=== PATIENT | female | born 1970 | race Caucasian/White ===

== ENCOUNTER 2023-04-10 11:59 | Emergency (ER) | payer OTHER, SELFPAY ==
[2023-04-10 11:59] VITALS: BP 174/99; PULSE 75; RESP 16; TEMP 36.6; O2SAT 99; BMI 36.0
--- NOTE | 2023-04-10 12:15 | EXP.UTC ---
Discharge Plan Disposition Patient Disposition: Home, Self-Care Condition: Good Prescriptions Prescriptions: New amoxicillin [amoxicillin] 875 mg tablet 875 mg PO Q12H Qty: 20 0RF methylprednisolone 4 mg Tablets,Dose Pack 4 mg PO DIRECTED Qty: 21 0RF No Action fluconazole 100 mg tablet PO 8 Days Qty: 10 carvedilol phosphate [Coreg CR] 20 mg capsule, ER multiphase 24 hr 20 mg PO QAM hydrochlorothiazide 12.5 mg tablet 12.5 mg PO QAM spironolactone [Aldactone] 25 mg tablet 12.5 mg PO BID meloxicam [Mobic] 15 mg tablet 15 mg PO ONCE Referrals Follow up/Referrals: Nina Lopez [Primary Care Provider] - See instructions Activity Restrictions/Add. Instructions Additional Instructions/Restrictions: Drink plenty of fluids. Take tylenol or ibuprofen for pain or fever. Take the medications as directed. Follow up with your regular doctor. GO TO THE ER FOR ANY WORSENING SYMPTOMS Clinical Impressions Clinical Impression: Otitis media Instructions Patient Instructions: Middle Ear Infection Discharge ED Provider: Curtis Zuniga [facility] General Stated complaint: right ear pain Mode of Arrival: Ambulatory Source of Information: Patient Limitations: No Limitations Time Seen by Provider: 04/10/23 12:15 Description of Symptoms (Recalled from Triage Doc. by RN): Complaint of right ear pain for 2 days. HEENT Symptoms (Recalled from RN notes): Yes Resp Symptoms (Recalled from RN notes): No Skin Symptoms (Recalled from RN notes): No MS Symptoms (Recalled from RN notes): No Functional Status (Recalled from RN notes): wnl History of Present Illness Provider Complaint: She states that she has had right ear pain and pressure for the past 2 days. Related Data Home Medications Medication Instructions Recorded Confirmed carvedilol phosphate 20 mg 20 mg PO QAM 01/22/18 capsule,[id number] multiphase (Coreg CR) fluconazole 100 mg tablet PO 8 days ##10 01/22/18 hydrochlorothiazide 12.5 mg tablet 12.5 mg PO QAM 01/22/18 meloxicam 15 mg tablet (Mobic) 15 mg PO ONCE 01/22/18 spironolactone 25 mg tablet 12.5 mg PO BID 01/22/18 (Aldactone) Previous Rx's Medication Instructions Recorded amoxicillin 875 mg tablet 875 mg PO Q12H #20 tabs 04/10/23 methylprednisolone 4 mg tablets in 4 mg PO DIRECTED #21 tabs 04/10/23 a dose pack Allergies Allergy/AdvReac Type Severity Reaction Status Date / Time No Known Allergies Allergy Verified 01/22/18 16:17 Worker's Comp Is this a Worker's Comp case?: No PFSH PFS Disclaimer: The information contained in this section may have been updated after the patient was seen, as this information can be updated by other users. Social History Smoking Status: Current every day smoker tobacco type: cigarettes packs per day: 2 alcohol intake: never substance use type: denies use current occupational status: employed Travel in the last 8 weeks: None ROS Obtained: Yes All systems reviewed & no additional complaints except as documented Constitutional Constitutional: Denies chills, Reports fever(s) and Reports poor appetite Eyes Eyes: Denies eye discharge ENT Ears, Nose, Mouth, and Throat: Denies ear discharge, Reports otalgia, Denies hearing loss, Denies sinus pain and Reports sore throat Cardiovascular Cardiovascular: Denies chest pain and Denies dyspnea Respiratory Respiratory: Denies chest congestion, Reports cough and Denies dyspnea Gastrointestinal Gastrointestingal: Denies abdominal pain, diarrhea, nausea or vomiting Musculoskeletal Musculoskeletal: Denies arthralgias Integumentary/Breasts Skin/Breast: Denies rash Physical Exam General General appearance: alert and in no apparent distress Head Head exam: atraumatic, normocephalic and normal inspection Eye Eye exam: Present normal appearance; Absent PERRL or EOMI ENT ENT exam: Present mucous membranes moist and normal external
[2023-04-10 12:23] VITALS: BP 174/99; PULSE 75; RESP 16; TEMP 36.6; O2SAT 99
== END 2023-04-10 12:24 | disposition home or self-care (01) ==
PROVIDERS: Emergency Provider Nurse Practitioner Family; PCP Nurse Practitioner Family
DX: H66.93 Otitis media, unspecified, bilateral (principal); F17.210 Nicotine dependence, cigarettes, uncomplicated
CPT/HCPCS: 99204; 99212; G0463

== ENCOUNTER 2023-05-10 17:58 | Emergency (ER) | payer OTHER, SELFPAY ==
[2023-05-10 17:59] VITALS: BP 151/83; PULSE 79; RESP 15; TEMP 36.8; O2SAT 100; BMI 34.5
--- NOTE | 2023-05-10 18:30 | EXP.UTC ---
Discharge Plan Disposition Patient Disposition: Home, Self-Care Condition: Good Prescriptions Prescriptions: New ibuprofen [IBU] 800 mg tablet 800 mg PO Q8HP PRN (Reason: Moderate Pain) Qty: 30 0RF amoxicillin [amoxicillin] 875 mg tablet 875 mg PO Q12H Qty: 20 0RF No Action fluconazole 100 mg tablet PO 8 Days Qty: 10 carvedilol phosphate [Coreg CR] 20 mg capsule, ER multiphase 24 hr 20 mg PO QAM hydrochlorothiazide 12.5 mg tablet 12.5 mg PO QAM spironolactone [Aldactone] 25 mg tablet 12.5 mg PO BID meloxicam [Mobic] 15 mg tablet 15 mg PO ONCE amoxicillin [amoxicillin] 875 mg tablet 875 mg PO Q12H Qty: 20 0RF methylprednisolone 4 mg Tablets,Dose Pack 4 mg PO DIRECTED Qty: 21 0RF Referrals Follow up/Referrals: Nina Lopez [Primary Care Provider] - See instructions Activity Restrictions/Add. Instructions Additional Instructions/Restrictions: Take the medications as directed. Follow up with your regular doctor. Follow up with your dentist. GO TO THE ER FOR ANY WORSENING SYMPTOMS Clinical Impressions Clinical Impression: Pain, dental Instructions Patient Instructions: DI for Dental Pain Discharge ED Provider: Curtis Zuniga [facility] General Stated complaint: RT ear pain Mode of Arrival: Ambulatory Source of Information: Patient Limitations: No Limitations Time Seen by Provider: 05/10/23 18:30 Description of Symptoms (Recalled from Triage Doc. by RN): Patient reports right ear pain for 2 days. States she isn't sure if it is her ear or a tooth. HEENT Symptoms (Recalled from RN notes): Yes Resp Symptoms (Recalled from RN notes): No Skin Symptoms (Recalled from RN notes): No MS Symptoms (Recalled from RN notes): No Functional Status (Recalled from RN notes): wnl History of Present Illness Provider Complaint: She states that for the past 3 days she has had worsening right upper jaw dental pain. Related Data Home Medications Medication Instructions Recorded Confirmed carvedilol phosphate 20 mg 20 mg PO QAM 01/22/18 capsule,[id number] multiphase (Coreg CR) fluconazole 100 mg tablet PO 8 days ##10 01/22/18 hydrochlorothiazide 12.5 mg tablet 12.5 mg PO QAM 01/22/18 meloxicam 15 mg tablet (Mobic) 15 mg PO ONCE 01/22/18 spironolactone 25 mg tablet 12.5 mg PO BID 01/22/18 (Aldactone) Previous Rx's Medication Instructions Recorded amoxicillin 875 mg tablet 875 mg PO Q12H #20 tabs 04/10/23 methylprednisolone 4 mg tablets in 4 mg PO DIRECTED #21 tabs 04/10/23 a dose pack amoxicillin 875 mg tablet 875 mg PO Q12H #20 tabs 05/10/23 ibuprofen 800 mg tablet (IBU) 800 mg PO Q8HP PRN Moderate Pain 05/10/23 #30 tabs Allergies Allergy/AdvReac Type Severity Reaction Status Date / Time No Known Allergies Allergy Verified 01/22/18 16:17 Worker's Comp Is this a Worker's Comp case?: No [facility] Disclaimer: The information contained in this section may have been updated after the patient was seen, as this information can be updated by other users. Social History (Updated 04/11/23 @ 11:10 by Curtis Zuniga APRN) Smoking Status: Current every day smoker tobacco type: cigarettes packs per day: 2 alcohol intake: never substance use type: denies use current occupational status: employed Travel in the last 8 weeks: None ROS Obtained: Yes All systems reviewed & no additional complaints except as documented Constitutional Constitutional: Denies chills and Denies fever(s) Eyes Eyes: Denies eye discharge ENT Ears, Nose, Mouth, and Throat: Reports as per HPI, Denies dizziness, Denies otalgia and Denies sore throat Cardiovascular Cardiovascular: Denies chest pain Respiratory Respiratory: Denies shortness of breath, Denies chest congestion, Denies cough, Denies stridor and Denies wheezing Gastrointestinal Gastrointestingal: Denies nausea or vomiting Musculoskeletal Musculoskeletal: Reports system re
[2023-05-10 18:38] VITALS: BP 151/83; PULSE 79; RESP 15; TEMP 36.8; O2SAT 100
== END 2023-05-10 18:40 | disposition home or self-care (01) ==
PROVIDERS: Emergency Provider Nurse Practitioner Family; PCP Nurse Practitioner Family
DX: R68.84 Jaw pain (principal); K08.89 Other specified disorders of teeth and supporting structures; F17.210 Nicotine dependence, cigarettes, uncomplicated
CPT/HCPCS: 99212; 99214; G0463

== ENCOUNTER 2025-02-19 18:25 | Emergency (ER) | payer OTHER, SELFPAY ==
[2025-02-19] VITALS (7 sets, daily range): BP systolic 162–206; BP diastolic 74–98; PULSE 74–85; RESP 16–17; TEMP 36.9; O2SAT 96–99; BMI 37.2
--- NOTE | 2025-02-19 18:46 | CT_ITS ---
PROCEDURE INFORMATION: Exam: CT Head Without Contrast Exam date and time: 02/19/2025 7:20 PM Age: 54 years old Clinical indication: Other: Headache; Additional info: L sided headache behind L eye TECHNIQUE: Imaging protocol: Computed tomography of the head without contrast. Radiation optimization: All CT scans at this facility use at least one of these dose optimization techniques: automated exposure control; mA and/or kV adjustment per patient size (includes targeted exams where dose is matched to clinical indication); or iterative reconstruction. COMPARISON: No relevant prior studies available. FINDINGS: Brain: Normal appearing brain parenchyma without intraparenchymal hemorrhage and normal hudson-white matter differentiation/no obvious acute ischemic stroke. No intra-or extra-axial fluid collection, no supra-or infratentorial mass, no mass effect or midline shift. Cerebral ventricles: Ventricles, sulci and basal cisterns are normal in size without hydrocephalus. Paranasal sinuses: No significant mucoperiosteal thickening in the visualized paranasal sinuses. Mastoid air cells: No mastoid effusion. Bones: Visualized skull bones are grossly normal. IMPRESSION: No evidence of an acute intracranial hemorrhage, mass lesion or obvious acute ischemic infarction.
[2025-02-19 18:50] LABS: Basophils # 0.1 K/mm3 (0-0.2); Basophils % 0.7 % (0.1-2.0); Eosinophils # 0.1 Kmm3 (0.0-0.4); Eosinophils % 1.4 % (0.1-12.0); Hematocrit 43.3 % (37.0-47.0); Hemoglobin 14.4 g/dL (12.2-16.2); Immature Granulocytes # 0.04 10^3uL; Immature Granulocytes % 0.4 %; Lymphocytes # 3.2 K/mm3 (0.7-4.5); Lymphocytes % 32.7 % (10-50); Mean Corpuscular HGB Conc 33.3 g/dL (31.8-35.4); Mean Corpuscular Hemoglobin 31.9 pg (27.0-31.2); Mean Platelet Volume 10.1 fl (7.4-10.4); Monocytes # 0.7 K/mm3 (0.1-1.0); Monocytes % 7.2 % (1.7-9.3); Neutrophils # 5.6 K/mm3 (1.8-7.8); Neutrophils % 57.6 % (37.0-80.0); Nucleated Red Blood Cells # 0 10^3/uL; Nucleated Red Blood Cells % 0 %; Platelet Count 268 K/mm3 (142-424); Red Blood Count 4.51 M/mm3 (4.20-5.40); Red Cell Distribution Width 12.6 % (11.5-17.5); White Blood Count 9.7 K/mm3 (4.8-10.8)
[2025-02-19] MEDS: KETOROLAC 30MG/ML VIAL 15 MG IV (19:01)
[2025-02-19] MEDS: METOCLOPRAMIDE HCL 10MG/2ML VIAL 5 MG IVP (19:01)
[2025-02-19] MEDS: ACETAMINOPHEN 500MG TAB 1000 MG PO (19:01)
[2025-02-19 19:12] LABS: Albumin Level 4.4 g/dl (3.5-5.0); Albumin/Globulin Ratio 1.6 (1.1-1.8); Alkaline Phosphatase 81 U/L (38-126); Anion Gap 8.6 mEq/L (5-15); Bilirubin,Total 0.4 mg/dl (0.2-1.3); Blood Urea Nitrogen 18 mg/dl (7-17); Calcium 9.6 mg/dl (8.4-10.2); Carbon Dioxide 30 mmol/L (22.0-30.0); Chloride 105 mmol/L (98-107); Creatinine Clearance Estimated 96 mL/min (50-200); Estimated Glomerular Filt Rate 58 ml/min (>60); GFR (African American) 70 ML/MIN (>60); Globulin 2.7 g/dL (1.3-3.2); Glucose 107 mg/dl (74-100); Potassium 4.6 mmoL/L (3.5-5.1); Sodium 139 mmol/L (136-145); Total Protein,Serum 7.1 g/dl (6.3-8.2)
[2025-02-19 19:14] LABS: Alanine Aminotransferase 17 U/L (12-78); Aspartate Amino Transferase 25 U/L (14-36)
[2025-02-19 19:29] LABS: Erythrocyte Sedimentation Rate 18 mm/hr (0-30)
--- NOTE | 2025-02-19 19:50 | PC.NURSE ---
Visual acuity results L eye 20/30, R eye 20/30 and bilateral 20/25.
[2025-02-19 19:58] LABS: HIV Combo NEGATIVE (Negative)
[2025-02-19] MEDS: DEXAMETHASONE 4MG/ML 1ML VIAL 8 MG IV (20:03)
[2025-02-19 20:06] LABS: Hepatitis C Ab Qual. W/ RFX NEGATIVE (Negative)
--- NOTE | 2025-02-19 20:09 | ED_ITS ---
Discharge Plan Disposition Patient Disposition: Home, Self-Care Condition: Good Prescriptions Prescriptions: No Action fluconazole 100 mg tablet PO 8 Days Qty: 10 carvedilol phosphate [Coreg CR] 20 mg capsule, ER multiphase 24 hr 20 mg PO QAM hydrochlorothiazide 12.5 mg tablet 12.5 mg PO QAM spironolactone [Aldactone] 25 mg tablet 12.5 mg PO BID meloxicam [Mobic] 15 mg tablet 15 mg PO ONCE amoxicillin [amoxicillin] 875 mg tablet 875 mg PO Q12H Qty: 20 0RF methylprednisolone 4 mg Tablets,Dose Pack 4 mg PO DIRECTED Qty: 21 0RF ibuprofen [IBU] 800 mg tablet 800 mg PO Q8HP PRN (Reason: Moderate Pain) Qty: 30 0RF amoxicillin [amoxicillin] 875 mg tablet 875 mg PO Q12H Qty: 20 0RF Referrals Follow up/Referrals: Nina Lopez [Primary Care Provider] - See instructions Freddie Sutton MD [Staff Physician] - See instructions Activity Restrictions/Add. Instructions Additional Instructions/Restrictions: You were evaluated in the emergency department today. Please follow-up very closely with your primary care provider for recheck and monitoring of your blood pressure. I am also providing you with information for cardiology if you wish to see them for blood pressure management given your historically difficult to control blood pressure. Return to the emergency department for new or worsening symptoms. Clinical Impressions Clinical Impression: Headache, High blood pressure Stand Alone Forms Stand Alone Forms: Work/School Release Instructions Patient Instructions: DI for Migraine, DI for High Blood Pressure, DI for Headache Print Language Print Language: [place]ib[place] Discharge ED Provider: Joy Wilson General Adult HPI General Chief complaint: Headache Stated complaint: pain on left side of head near nondenominational Time Seen by Provider: 02/19/25 18:46 Mode of Arrival: Ambulatory Source of Information: Patient Description of Symptoms (Recalled from ER Triage Doc. by RN): pt presents to ED c/o pain around left eye that started yesterday around 1500. pt states she took Tylenol and pain subsided. pt states today around 1500 pain started ago, this time Tylenol didn't relieve her pain. pt reports hx of migraines with last one being 10 years ago. pt denies any injury. pt reports blurred vision that started with initial pain yesterday. History of Present Illness HPI narrative: This patient is a 54-year-old female with a history of difficult to control hypertension presenting to the emergency department for evaluation with concern for headache around her left eye. She states that started yesterday around 3 PM and went away with Tylenol, however this morning it started again and Tylenol did not help. She has a history of migraines but has not had any recently. No falls or traumatic injury. She notes some blurred vision with this, but cannot tell which eye is affected or if its both. She denies any numbness, tingling, unilateral weakness, or other concerns. No recent fevers or infectious symptoms. She does have an appointment next week with her PCP because she has been trying to get her blood pressure under control without success Related Data Home Medications ?Medication ?Instructions ?Recorded ?Confirmed carvedilol phosphate 20 mg 20 mg PO QAM 01/22/18 capsule,[id number] multiphase (Coreg CR) fluconazole 100 mg tablet PO 8 days ##10 01/22/18 hydrochlorothiazide 12.5 mg tablet 12.5 mg PO QAM 01/22/18 meloxicam 15 mg tablet (Mobic) 15 mg PO ONCE 01/22/18 spironolactone 25 mg tablet 12.5 mg PO BID 01/22/18 (Aldactone) Previous Rx's ?Medication ?Instructions ?Recorded amoxicillin 875 mg tablet 875 mg PO Q12H #20 tabs 04/10/23 methylprednisolone 4 mg tablets in 4 mg PO DIRECTED #21 tabs 04/10/23 a dose pack amoxicillin 875 mg tablet 875 mg PO Q12H #20 tabs 05/10/23 ibuprofen 800 mg tablet (IBU) 800 mg PO Q8HP PRN Moderate Pain 05/10/23 #30 tabs Allergies Allergy/AdvReac Type Severity Reaction Status Date / Time No Known Allergies Allergy Verified 01/22/18 16:17 [facility] Disclaimer: The information contained in this section may have been updated after the patient was seen, as this information can be updated by other users. Social History Smoking Status: Current every day smoker tobacco type: cigarettes packs per day: 2 alcohol intake: never substance use type: denies use current occupational status: employed Travel in the last 8 weeks?: None Have you lived/traveled outside [place] in past 30 days?: No Contact w/someone who lives/traveled outside [place] past 30 days?: No Exposure to someone with infectious disease in past 14 days?: No Do you have a fever (greater than 100.4 F or 38 C)?: No Have you tested positive for COVID-19?: No Exposed to someone with COVID-19 in past 14 days?: No Do you have a sore throat?: No Do you have a cough?: No Do you have any weakness?: No Do you have any diarrhea?: No Are you experiencing any unusual bleeding?: No Do you have any muscle aches/pain?: No Do you have any abdominal pain?: No Are you experiencing loss of taste or smell?: No Other Medical History Have you received the Flu Vaccine for this season: No ROS Obtained: Yes All systems reviewed & no additional complaints except as documented Physical Exam General General appearance: alert and in no apparent distress Head Head exam: atraumatic and normocephalic Eye Eye exam: Present normal appearance, PERRL and EOMI ENT ENT exam: Present normal exam, normal oropharynx, mucous membranes moist and normal external ear exam Neck Neck exam: Present normal inspection, full ROM and trachea midline; Absent tenderness Chest Chest inspection: Present normal inspection and symmetric chest wall rise; Absent tenderness Respiratory Respiratory exam: Present normal lung sounds bilaterally; Absent respiratory distress, wheezes, stridor or accessory muscle use Cardiovascular Cardiovascular exam: Present regular rate and normal rhythm Abdominal Exam Abdominal exam: Present soft; Absent distention, tenderness or guarding Extremities Exam Extremities exam: Present normal inspection, full ROM and normal capillary refill; Absent tenderness or edema Back Exam Back exam: Present normal inspection and full ROM; Absent tenderness Neurological Exam Neurological exam: Present alert, oriented X3, CN II-XII intact and normal gait; Absent motor sensory deficit Psychiatric Psychiatric exam: Present normal affect and normal mood Skin Skin exam: Present warm and dry Medical Decision Making Medical Records Medical records reviewed: Yes I reviewed the patient's medical records. Screening: Per USPSTF and CDC recommendations, given the prevalence of disease in our region, it is our hospital?s policy to screen for HIV and viral Hepatitis for all patients aged 18 and over and those with ongoing risk factors. Bk Inquiry Pt receiving controlled substance: No Vital Signs: 02/19/25 18:31 02/19/25 18:34 02/19/25 19:00 Temperature 98.5 F Temperature Source Oral Pulse Rate 82 Pulse Rate [Right Radial] 85 Respiratory Rate 16 Blood Pressure 177/97 H 180/89 H Blood Pressure [Right Arm] 177/97 H Blood Pressure Mean 114 Blood Pressure Mean [Right Arm] 123 Blood Pressure Source [Right Arm] Automatic Cuff Blood Pressure Position [Right Arm] Sitting 02 Sat by Pulse Oximetry 97 97 Oxygen Delivery Method Room Air Room Air 02/19/25 19:24 02/19/25 19:31 02/19/25 19:31 Temperature Temperature Source Pulse Rate 80 79 Pulse Rate [Right Radial] Respiratory Rate Blood Pressure 206/98 H 184/91 H Blood Pressure [Right Arm] Blood Pressure Mean 134 122 Blood Pressure Mean [Right Arm] Blood Pressure Source [Right Arm] Blood Pressure Position [Right Arm] 02 Sat by Pulse Oximetry 98 96 Oxygen Delivery Method Lab Data Lab results reviewed: Yes I reviewed the patient's lab results. Lab Results 02/19/25 18:38: WBC 9.7, RBC 4.51, Hgb 14.4, Hct 43.3, MCV 96.0, MCH 31.9 H, MCHC 33.3, RDW 12.6, Plt Count 268, MPV 10.1, Neut % (Auto) 57.6, Lymph % (Auto) 32.7, Edgar % (Auto) 7.2, Eos % (Auto) 1.4, Baso % (Auto) 0.7, Neut # (Auto) 5.6, Lymph # (Auto) 3.2, Edgar # (Auto) 0.7, Eos # (Auto) 0.1, Baso # (Auto) 0.1, Sodium 139, Potassium 4.6, Chloride 105, Carbon Dioxide 30, Anion Gap 8.6, BUN 18 H, Creatinine 1.00, Estimated Creat Clear 96, Estimated GFR 58 L, Est GFR ( Amer) 70, Glucose 107 H, Calcium 9.6, Total Bilirubin 0.4, AST 25, ALT 17, Alkaline Phosphatase 81, Total Protein 7.1, Albumin 4.4, Globulin 2.7, Albumin/Globulin Ratio 1.6, HCV Ab FROYLAN w/Rflx PCR Qn Negative, HIV Ag/Ab Combo Qual Negative 02/19/25 19:20: ESR 18 02/19/25 18:38 02/19/25 18:38 Orders (Tests/Meds): ED MEDICATIONS Generic Name Dose Route Start Last Admin Trade Name Freq PRN Reason Stop Dose Admin Sodium Chloride 10 ml 02/19/25 18:36 Sodium Chloride 0.9% 10ml Flush Syringe IV 03/21/25 18:35 NEEDED PRN Maintain IV Site Discontinued Medications Generic Name Dose Route Start Last Admin Trade Name Freq PRN Reason Stop Dose Admin Acetaminophen 1,000 mg 02/19/25 18:46 02/19/25 19:01 Acetaminophen 500mg Tab PO 02/19/25 18:47 1,000 mg ONCE ONE Administration Dexamethasone Sodium Phosphate 8 mg 02/19/25 19:59 02/19/25 20:03 Dexamethasone 4mg/Ml 1ml Vial IV 02/19/25 20:00 8 mg ONCE ONE Administration Ketorolac Tromethamine 15 mg 02/19/25 18:46 02/19/25 19:01 Ketorolac 30mg/Ml Vial IV 02/19/25 18:47 15 mg ONCE ONE Administration Metoclopramide HCl 5 mg 02/19/25 18:46 02/19/25 19:01 Metoclopramide Hcl 10mg/2ml Vial IVP 02/19/25 18:47 5 mg ONCE ONE Administration ORDERS Category Date Time Status CT head/brain wo con Stat Cat Scan 02/19/25 18:46 Completed Complete Blood Count Auto Diff Stat Lab 02/19/25 18:38 Completed Comprehensive Metabolic Panel Stat Lab 02/19/25 18:38 Completed ESR [Erythrocyte Sedimentation Rate] Stat Lab 02/19/25 19:20 Completed HIV Combo Stat Lab 02/19/25 18:38 Completed Hepatitis C Ab Qual. W/ RFX Stat Lab 02/19/25 18:38 Completed Medical Decision Narrative: In summary, this patient is a 54-year-old female presenting to the Emergency Department for evaluation of headache. Differential diagnoses considered include but are not limited to migraine, tension headache, acute angle-closure glaucoma, temporal arteritis, intracranial hemorrhage, cluster headache. Ruling out the most morbid conditions drove assessment. It should be noted patient's history includes hypertension which is not at goal therapy. This complicates all aspects of care by increasing patient's risk for morbidity. On exam, the patient is sitting upright in no acute distress and is neurologically intact without any focal deficits. Eye exam is normal with normal pressures, 17 in both eyes. She has intact visual ga, pupils are equal and reactive, extraocular movements are intact. She has no temporal artery tenderness to palpation. She is hypertensive with systolics in the 160s to 180s on assessment. Workup included CBC, CMP, ESR, CT head without contrast. I independently interpreted CT prior to the radiologist read and noted no intracranial hemorrhage or space-occupying lesion. Please see their read for final interpretation. Labs were obtained that demonstrated reassuring CBC with no significant leukocytosis or anemia, reassuring chemistry. ESR is negative. On reassessment, patient had good improvement after administration of IV Toradol, Reglan, Tylenol. She is feeling a lot better with resolution of headache and remain neurologically intact. Blood pressure did shoot up to 200 on assessment with no symptoms noted at that time. No evidence of endorgan dysfunction, and she states that her blood pressures been running high which she has an appointment scheduled for next week. I do not feel that she has hypertensive urgency or emergency at this time. Systolic just prior to discharge 180. I advised her to keep an eye on her blood pressure, provide her primary care doctor with a log, and they can help further adjust her medications as they have been doing on an outpatient basis. Patient was discharged with strict return precautions Critical Care Critical Care Time Critical Care Time: No
[2025-02-19] MEDS: TETRACAINE 0.5% OPTH SOL 15ML OP (20:18)
== END 2025-02-19 20:09 | disposition home or self-care (01) ==
PROVIDERS: Emergency Provider Emergency Medicine; PCP Nurse Practitioner Family
DX: R51.9 Headache, unspecified (principal); I10 Essential (primary) hypertension; F17.210 Nicotine dependence, cigarettes, uncomplicated; Z11.59 Encounter for screening for other viral diseases; Z11.4 Encounter for screening for human immunodeficiency virus [HIV]
CPT/HCPCS: 70450; 80053; 85025; 85651; 86803; 87389; 96374; 96375; 99284; J1100; J1885; J2765